=== PATIENT | male | born 1930 ===

== ENCOUNTER 2016-09-26 13:07 | Observation (INO) ==
[2016-09-26] MEDS ORDERED: MORPHINE 10 MG/1 ML VIAL IV PRN (13:59)
[2016-09-26] MEDS ORDERED: MYLANTA/LIDO VISC 2:1 300 ML BOTTLE SWISH/SWAL PRN (14:01)
[2016-09-26] MEDS ORDERED: guaiFENesin 200 MG/10 ML UDCUP PO PRN (14:01)
[2016-09-26] MEDS ORDERED: ACETAMINOPHEN 325 MG TABLET PO PRN (14:01)
[2016-09-26] MEDS ORDERED: MYLANTA/LIDO VISC 2:1 300 ML BOTTLE SWISH/SPIT PRN (14:01)
[2016-09-26] MEDS ORDERED: chlorproMAZINE INJ 25 MG in SODIUM CHLORIDE 0.9% 100 ML IV PRN (14:01)
[2016-09-26] MEDS ORDERED: chlorproMAZINE 25 MG TABLET PO PRN (14:01)
[2016-09-26] MEDS ORDERED: traMADol 50 MG TABLET PO PRN (14:01)
[2016-09-26] MEDS ORDERED: ALPRAZolam 0.25 MG TABLET PO PRN (14:01)
[2016-09-26] MEDS ORDERED: PROMETHAZINE INJ 25 MG in SODIUM CHLORIDE 0.9% 50 ML IV PRN (14:01)
[2016-09-26] MEDS ORDERED: BENZTROPINE 2 MG/2 ML AMP IV PRN (14:01)
[2016-09-26] MEDS ORDERED: ONDANSETRON 4 MG/2 ML VIAL IV PRN (14:01)
[2016-09-26] MEDS ORDERED: MAGNESIUM HYDROXIDE SUSP 30 ML UDCUP PO PRN (14:01)
[2016-09-26] MEDS ORDERED: chlorproMAZINE INJ 50 MG in SODIUM CHLORIDE 0.9% 100 ML IV PRN (14:01)
[2016-09-26] MEDS ORDERED: LACTULOSE 20 GM/30 ML UDCUP PO PRN (14:01)
[2016-09-26] MEDS ORDERED: ALUMINUM/MAGNES/SIMETH MAX STR 30 ML UDCUP PO PRN (14:01)
[2016-09-26] MEDS ORDERED: diphenhydrAMINE CAP 25 MG CAPSULE PO PRN (14:01)
[2016-09-26] MEDS ORDERED: LOPERAMIDE 2 MG CAPSULE PO PRN ×2 (14:01)
[2016-09-26] MEDS ORDERED: TEMAZEPAM 7.5 MG CAPSULE PO PRN (14:01)
[2016-09-26 14:38] LABS: Basophils % 0.1 % (0.0-0.8); Hematocrit 30.9 VOL% (42.0-52.0); Hemoglobin 9.7 GM/DL (14.0-18.0); Immature Granulocytes % 0.7 %; Immature Granulocytes Absolute 0.16 #; Lymphocytes # 0.7 10*3/uL (1.4-4.0); Lymphocytes % 2.8 % (21.2-54.2); Mean Corpuscular HGB Conc 31.4 GM/DL (32-36); Mean Corpuscular Hemoglobin 27 PG (27-34); Mean Corpuscular Volume 86.3 FL (87-102); Mean Platelet Volume 9.5 FL (9.6-12.0); Monocytes # 1.9 10*3/uL (0.11-0.8); Monocytes % 7.7 % (1.7-12.7); Neutrophils # 21.3 10*3/uL (1.4-7.4); Neutrophils % 88.7 % (38.7-73.9); Platelet Count 339 T/CUMM (130-400); Red Blood Count 3.58 MC/CUMM (3.8-5.5); Red Cell Distribution Width 14.9 % (9.3-17.3)
[2016-09-26 14:56] LABS: INR 1.1
[2016-09-26 15:05] LABS: Albumin 2.2 G/DL (3.4-5.0); Bilirubin,Total 0.6 MG/DL (0.2-1.0); Calcium 10.4 MG/DL (8.5-10.1); Magnesium 2.1 MG/DL (1.8-2.4); Osmolality,Calculated 277.2 MOS/KG (273-304); Potassium 4.9 MMOL/L (3.5-5.1); Uric Acid 8.7 MG/DL (3.5-7.2)
[2016-09-26 16:16] LABS: Lymphocytes 1 % (20-55); Segmented Neutrophils 98 % (50-85); Total Cells Counted 100
[2016-09-26 16:17] LABS: Platelet Estimate Normal; Polychromasia Few
[2016-09-26] MEDS ORDERED: TUBERCULIN SKIN TEST 0.1 ML SYRINGE INTRADERM ONE (18:00)
[2016-09-26] MEDS: LORazepam 2 MG/1 ML VIAL IV PRN (20:02)
[2016-09-27] MEDS: LORazepam 2 MG/1 ML VIAL IV PRN (03:32)
[2016-09-27 03:59] VITALS: BP 126/58
--- NOTE | 2016-09-27 08:20 | Oncology History&Physical ---
Assessment and Plan (1) Liver mass Status: Acute Assessment and plan: Patient admitted for analgesia and medications for anxiety and confusion. Lab work was reviewed. Plans were initially to seek hospice type placement. Current Visit: No History of Present Illness Chief complaint: Metastatic cancer History of present illness: Mr. Calles is a 85 year old male Admitted yesterday from my office with a diagnosis of widely disseminated and poorly differentiated carcinoma. The patient was seen by me last week in consultation. He was seen yesterday with his daughter. He was demonstrating confusion and disorientation. We previously discussed an attempt to pursue oral therapy but yesterday's office discussion was based primarily on palliative care. The daughter stated she was unable to care for her father at home and he was admitted for pain management. The patient was found to be pulseless earlier this morning on rounds. DO NOT RESUSCITATE order was previously in place. Home Medications Medication Instructions Recorded Confirmed Type Omeprazole 20 mg PO BID 08/31/16 09/18/16 History Ondansetron Tab [Zofran Tab] 4 mg PO Q4-6H PRN 08/31/16 09/18/16 History Tolterodine LA [Detrol LA] 2 mg PO DAILY 09/18/16 09/18/16 History Ferrous Sulfate [Ferrous Sulfate 325 mg PO DAILY #100 capsule 09/21/16 Rx Cap] oxyCODONE IR [Roxicodone] 10 mg PO Q4H PRN #30 tablet 09/21/16 Rx Allergies Allergy/AdvReac Type Severity Reaction Status Date / Time No Known Allergies Allergy Unverified 09/04/16 08:49 Medical,Surgical,& Family Hx - Medical History Cardio: History of: Hypertension Neurology: No history of: Seizures HEENT: History of: Ear Problem ([place]; NICOLE HEARINGAIDS), Eye Problem (GLASSES), Dental Problems (FULL SET) Respiratory: No history of: Respiratory Problems (FLU VAC-YES;PNEU VAC-YES.) Gastrointestinal: History of: GI Problems (, pt states stomach is sore, family reorts tumors in abd) Musculoskeletal: History of: Back/Neck Problems (ARTHRITIS IN NECK) - Surgical History HEENT Surgeries: Surgical HX of: Eye Surgery (CATARACT) Orthopedic Surgeries: Surgical HX of;: Total Hip Replacement (LEFT HIP) - Social History Smoking Status: Smoker, status unknown ROS unobtainable: other Exam - Constitutional Vitals: Period Temp Pulse Resp BP Sys/Colon Pulse Ox Last 24 Hr 97.7 F-99.5 F 80-96 18-21 126-184/58-76 90-99 General appearance: under weight (As performed on 09/27/2015) - Head Head Exam: Present: normocephalic, atraumatic - Eye Eye Exam: Present: scleral icterus. Absent: periorbital swelling - ENT ENT exam: Present: normal external ear exam - Neck Neck exam: Absent: lymphadenopathy, tenderness - Respiratory Respiratory exam: Present: CTAB. Absent: accessory muscle use, chest wall tenderness - Cardiovascular Cardiovascular exam: Present: RRR - GI/Abdominal GI/Abdominal exam: Present: distended, firm, mass. Absent: guarding - Extremities Exam Extremities exam: Absent: edema - Neurological Exam Neurological exam: Present: alert, altered. Absent: motor sensory deficit - Psychiatric Psychiatric exam: Present: agitated - Skin Skin exam: Present: warm, dry Results - Labs CBC & BMP: 09/26/16 14:27 09/26/16 14:27
--- NOTE | 2016-10-05 08:06 | Discharge Summary ---
Hospital Course - Hospital Course Hospital Course: Patient admitted with DO NOT RESUSCITATE orders with widely metastatic poorly differentiated carcinoma recently diagnosed. The patient was seen in the office prior to admission with his daughter. He was having evidence of confusion and agitation. She stated that she was unable to care for him at home. He was admitted with the intentions of seeking alf type placement. His labs were ordered and were acceptable. He was given anxiolytics and analgesia. On routine morning rounds he was found to be apneic and pulseless and was pronounced . Family was notified. Diagnosis - Discharge Diagnosis (1) Liver mass Status: Acute Discharge Plan - Discharge Data Disposition: - Discharge Medications No Action Ondansetron Tab [Zofran Tab] 4 mg PO Q4-6H PRN PRN Reason: Nausea Omeprazole 20 mg PO BID Tolterodine LA [Detrol LA] 2 mg PO DAILY oxyCODONE IR [Roxicodone] 10 mg PO Q4H PRN #30 tablet PRN Reason: Pain Severe (8-10) Ferrous Sulfate [Ferrous Sulfate Cap] 325 mg PO DAILY #100 capsule - Follow Up or Referral - Forms/Instructions DS: Provider Date of admission: 09/26/16 13:17 Primary care physician: Daniel Logan MD Attending physician on admission: Dany Bowen MD Consults: 09/26/16 15:15 Consult to Liaison [CONS] Routine Reason for Liaison: Other Consult Comment: Per patient request Discharging clinician: Dany Bowen MD
== END 2016-09-27 07:14 | disposition expired ==
LOC: N.4E
PROVIDERS: ADMIT Specialist; ATTEND Specialist